=== PATIENT | male | born 1940 | race Caucasian/White ===

== ENCOUNTER 2020-02-16 09:32 | Inpatient (IN) | payer MEDICARE, OTHER ==
[~2020-02-16] VITALS: Ht 177.8 cm; Wt 67.2 kg
--- NOTE | 2020-02-16 09:46 | PHYS DOC ---
Past History Past Medical History: DVT, Other (non-hodgekin's lymphoma stage III on hospice) Adult General Chief Complaint Chief Complaint: ALTERED MENTAL STATUS HPI HPI Patient is a 79-year-old male who presents for falls. Patient lives at home with daughter and is currently on home hospice for stage III non-Hodgkin lymphoma for which he failed chemo and radiation. Per daughter, patient has had deterioration in mentation in the past 48 hours with several unwitnessed falls. In the past 24 hours, patient has had new onset visual hallucinations. Hospice was contacted and patient was administered lorazepam, morphine, and several doses of haloperidol without significant relief in patient's mentation. Patient had x2 unwitnessed falls this morning in the bathroom prompting daughter to call EMS to bring him to our facility for evaluation. Daughter admits patient is full code at this time. On arrival, patient has no complaints at this time, no fever, no headache, no chest pain, shortness of breath, nausea or vomit diarrhea, changes in bladder or bowel function. He is currently on Eliquis for prior DVT Review of Systems Review of Systems Fourteen body systems of review of systems have been reviewed. See HPI for pertinent positives and negative responses, other santiago all other systems are negative, non-pertinent or non-contributory Allergies Allergies Allergies Coded Allergies Type Severity Reaction Last Updated Verified No Known Drug Allergies 02/16/20 No Physical Exam Physical Exam Constitutional: Pt is oriented to person, place, and time. Pt appears thin and malnourished HENT: Head: Normocephalic and atraumatic. Mouth/Throat: Oropharynx is clear and moist. No hematomas or lacerations or abrasions to face or scalp OP clear, no blood, no malocclusion, dentition intact Nares clear, no nasal septal hematoma TMs clear, no hemotympanum Midface stable Eyes: Conjunctivae and EOM are normal. Pupils are equal, round, and reactive to light. Neck: C-spine midline nontender, no step-offs Cardiovascular: Normal rate, regular rhythm and normal heart sounds. Pulmonary/Chest: Effort normal and breath sounds normal. No respiratory distress. No wheezes. CTA bilaterally Abdominal: Soft. Bowel sounds are normal. No guarding or rebound. Pt exhibits no distension. There is no tenderness. Musculoskeletal: No bony tenderness to extremities, no deformities, full ROM extremities Chest wall stable Pelvis stable and non-tender No vertebral TTP and spine without stepoffs Neurological: Pt is alert and oriented to person, place, and time. Moving all extremities willfully, able to wiggle all fingers and toes Alert and oriented x 3 Sensation grossly intact Skin: Skin is warm and dry. No abrasions, no lacerations Psychiatric: Behavior is appropriate for situation Nursing note and vitals reviewed. Current Patient Data Vital Signs Vital Signs Date Time Temp Pulse Resp B/P (MAP) Pulse Ox O2 Delivery O2 Flow Rate FiO2 02/16/20 10:41 98.2 85 16 117/62 (80) 95 Lab Results Laboratory Tests Test 02/16/20 09:36 02/16/20 11:15 White Blood Count 3.7 x10^3/uL (4.0-11.0) Red Blood Count 4.09 x10^6/uL (4.30-5.70) Hemoglobin 12.8 g/dL (13.0-17.5) Hematocrit 38.8 % (39.0-53.0) Mean Corpuscular Volume 95 fL (79-100) Mean Corpuscular Hemoglobin 31 pg (25-35) Mean Corpuscular Hemoglobin Concent 33 g/dL (31-37) Red Cell Distribution Width 15.2 % (11.5-14.5) Platelet Count 162 x10^3/uL (140-400) Neutrophils (%) (Auto) 73 % (31-73) Lymphocytes (%) (Auto) 11 % (24-48) Monocytes (%) (Auto) 12 % (0-9) Eosinophils (%) (Auto) 4 % (0-3) Basophils (%) (Auto) 1 % (0-3) Neutrophils # (Auto) 2.7 x10^3uL (1.8-7.7) Lymphocytes # (Auto) 0.4 x10^3/uL (1.0-4.8) Monocytes # (Auto) 0.4 x10^3/uL (0.0-1.1) Eosinophils # (Auto) 0.1 x10^3/uL (0.0-0.7) Basophils # (Auto) 0.0 x10^3/uL (0.0-0.2) Sodium Level 141 mmol/L (136-145) Potassium Level 3.5 mmol/L (3.5-5.1) Chloride Level 105 mmol/L (98-107) Carbon Dioxide Level 28 mmol/L (21-32) Anion Gap 8 (6-14) Blood Urea Nitrogen 10 mg/dL (8-26) Creatinine 1.0 mg/dL (0.7-1.3) Estimated GFR (Cockcroft-Gault) 72.1 BUN/Creatinine Ratio 10 (6-20) Glucose Level 83 mg/dL (70-99) Calcium Level 8.7 mg/dL (8.5-10.1) Total Bilirubin 0.5 mg/dL (0.2-1.0) Aspartate Amino Transf (AST/SGOT) 15 U/L (15-37) Alanine Aminotransferase (ALT/SGPT) 11 U/L (16-63) Alkaline Phosphatase 49 U/L (46-116) Troponin I Quantitative 0.030 ng/mL (0-0.055) Total Protein 5.7 g/dL (6.4-8.2) Albumin 3.0 g/dL (3.4-5.0) Albumin/Globulin Ratio 1.1 (1.0-1.7) Urine Collection Type Unknown Urine Color Yellow Urine Clarity Clear Urine pH 5.5 Urine Specific [place] 1.015 Urine Protein Neg (NEG-TRACE) Urine Glucose (UA) Neg mg/dL (NEG) Urine Ketones (Stick) Neg mg/dL (NEG) Urine Blood Neg (NEG) Urine Nitrite Neg (NEG) Urine Bilirubin Neg (NEG) Urine Urobilinogen Dipstick 0.2 mg/dL (0.2 mg/dL) Urine Leukocyte Esterase Neg (NEG) Urine RBC 0 /HPF (0-2) Urine WBC 0 /HPF (0-4) Urine Bacteria 0 /HPF (0-FEW) EKG EKG EKG ordered and interpreted by myself at 1023 hrs. as sinus rhythm at 82 bpm, unremarkable intervals, left axis deviation, several premature ventricular complexes on ECG, right bundle branch block, no STEMI Radiology/Procedures Radiology/Procedures PROCEDURE: CHEST AP ONLY Examination: CHEST AP ONLY History: fall, fatigue Comparison: None. Findings: AP portable upright frontal view of the chest was obtained. Limited pulmonary inflation. The cardiomediastinal silhouette is normal. Left lateral basal nodular opacities are present.Elevation left hemidiaphragm noted. There is no pneumothorax. No pleural effusion is appreciated. No acute bone abnormality. Left upper abdominal surgical clips are present. IMPRESSION: No definite infiltrate. Nodular opacities at the left lateral lung base are present. Correlate with previous exams if available to assess stability. This may in part represent atelectasis or scarring. Follow-up two-view chest x-ray in the interval to assess for resolution. Electronically signed by: Bin Olivera MD (02/16/2020 10:21 AM) [id number] PROCEDURE: CT HEAD AND CERVICAL SPINE WO CT HEAD AND CERVICAL SPINE WO dated 02/16/2020 9:45 AM. Comparison: None. Clinical Indication: Reason: fall to head on eliquis / Spl. Instructions: / History: , HEAD AND NECK PAIN Technical factors: Contiguous 5 mm axial images of the head were obtained from the skullbase to the vertex. No contrast was administered. In addition, 3 mm axial images of the cervical spine were acquired with thin cut coronal and sagittal reconstructions. Findings head: Ventricles and sulci are mildly prominent for age. No midline shift or mass effect. Mild patchy low density in the deep/subcortical periventricular white matter. No hemorrhage or extra-axial collection. Posterior fossa and brainstem unremarkable. Mild mucosal thickening of the ethmoid air cells. The visualized paranasal sinuses and mastoid air cells are otherwise clear. No apparent calvarial abnormality. IMPRESSION HEAD: 1. No evidence of acute intracranial hemorrhage or mass. 2. Mild chronic small vessel ischemic changes and atrophy. Findings cervical spine: Images were acquired from the skull base to T3. There is straightening of the normal cervical lordosis, otherwise sagittal alignment is anatomic. Vertebral body heights are maintained. No prevertebral soft tissue swelling. Posterior elements are intact. No fractures are identified. Mild endplate hypertrophic changes throughout. There is multilevel uncovertebral spurring and disc space narrowing with multilevel facet arthropathy. Resultant moderate to severe bilateral foraminal stenosis at C5-C6 and C6-C7. There is also moderate to severe left foraminal narrowing at C3-C4. No significant central canal compromise. Visually soft tissue structures are unremarkable. Limited images of lung apices are clear. Small noncalcified pulmonary nodule in the left upper lobe on image 93 measures 3 mm, nonspecific. IMPRESSION CERVICAL SPINE: 1. No evidence of fracture or malalignment. 2. Moderate multilevel cervical spondylosis. Electronically signed by: Srinivas Balderrama MD (02/16/2020 10:16 AM) [facility] [place] Heart Score HEART Score for Chest Pain: HEART Score for Chest Pain Response (Comments) Value History Slighlty/Non-Suspicious 0 ECG Normal 0 Age > 65 2 Risk Factors >3 Risk Factors or Hx CAD 2 Troponin < Normal Limit 0 Total 4 Risk Factors: Risk Factors: DM, Current or recent (<one month) smoker, HTN, HLP, family history of CAD, obesity. Risk Scores: Risk Factors: DM, Current or recent (<one month) smoker, HTN, HLP, family history of CAD, obesity. Course & Med Decision Making Course & Med Decision Making Pertinent Labs and Imaging studies reviewed. (See chart for details) Well-appearing nontoxic ambulatory patient with ongoing visual hallucinations Case discussed at length with daughter and hospice nurse, they gave primary history regarding last 24 hours. It appears patient was owning yesterday evening and was responsive to Haldol given but daughter cannot provide level of care that patient has requiring at this time Pt continuing to have visual hallucinations in ER but is otherwise pleasant, alert and oriented x3. He is wandering down the halls but is very redirectable. I feel he would benefit from admission for continued observation and medication management to titrate up on Haldol vs other per hospitalist I called Dr. Duong, hospitalist at [facility] regarding patient case and he agreed to admission under his care. Daughter was contacted regarding this decision and was amenable. All questions and concerns addressed prior to transport for continued medical management and observation Dragon Disclaimer Dragon Disclaimer This electronic medical record was generated, in whole or in part, using a voice recognition dictation system. Departure Departure: Impression: Primary Impression: Visual hallucinations Additional Impressions: Non-Hodgkin lymphoma History of fall Anticoagulated Hospice care patient Full code status Disposition: ADMITTED INPT THIS HOSP ([facility]) Admitting Physician: Ayla Duong Condition: STABLE Problem Qualifiers JASON BOWLING DO Feb 16, 2020 09:45
[2020-02-16 10:15] LABS: BASO % 1 % (0-3); EOS # 0.1 x10^3/uL (0.0-0.7); EOS % 4 % (0-3); HEMATOCRIT 38.8 % (39.0-53.0); HEMOGLOBIN 12.8 g/dL (13.0-17.5); LYMPH # 0.4 x10^3/uL (1.0-4.8); LYMPH % 11 % (24-48); MEAN CORPUSCULAR HEMOGLOBIN 31 pg (25-35); MEAN CORPUSCULAR HGB CONC 33 g/dL (31-37); MEAN CORPUSCULAR VOLUME 95 fL (79-100); MONO # 0.4 x10^3/uL (0.0-1.1); MONO % 12 % (0-9); NEUT # 2.7 x10^3uL (1.8-7.7); NEUT % 73 % (31-73); PLATELET COUNT 162 x10^3/uL (140-400); RED BLOOD COUNT 4.09 x10^6/uL (4.30-5.70); RED CELL DISTRIBUTION WIDTH 15.2 % (11.5-14.5); WHITE BLOOD COUNT 3.7 x10^3/uL (4.0-11.0)
[2020-02-16 10:18] LABS: CALCIUM 8.7 mg/dL (8.5-10.1); GFR 72.1; POTASSIUM 3.5 mmol/L (3.5-5.1)
--- NOTE | 2020-02-16 10:19 | RAD ---
CT HEAD AND CERVICAL SPINE WO dated 02/16/2020 9:45 AM. Comparison: None. Clinical Indication: Reason: fall to head on eliquis / Spl. Instructions: / History: , HEAD AND NECK PAIN Technical factors: Contiguous 5 mm axial images of the head were obtained from the skullbase to the vertex. No contrast was administered. In addition, 3 mm axial images of the cervical spine were acquired with thin cut coronal and sagittal reconstructions. Findings head: Ventricles and sulci are mildly prominent for age. No midline shift or mass effect. Mild patchy low density in the deep/subcortical periventricular white matter. No hemorrhage or extra-axial collection. Posterior fossa and brainstem unremarkable. Mild mucosal thickening of the ethmoid air cells. The visualized paranasal sinuses and mastoid air cells are otherwise clear. No apparent calvarial abnormality. IMPRESSION HEAD: 1. No evidence of acute intracranial hemorrhage or mass. 2. Mild chronic small vessel ischemic changes and atrophy. Findings cervical spine: Images were acquired from the skull base to T3. There is straightening of the normal cervical lordosis, otherwise sagittal alignment is anatomic. Vertebral body heights are maintained. No prevertebral soft tissue swelling. Posterior elements are intact. No fractures are identified. Mild endplate hypertrophic changes throughout. There is multilevel uncovertebral spurring and disc space narrowing with multilevel facet arthropathy. Resultant moderate to severe bilateral foraminal stenosis at C5-C6 and C6-C7. There is also moderate to severe left foraminal narrowing at C3-C4. No significant central canal compromise. Visually soft tissue structures are unremarkable. Limited images of lung apices are clear. Small noncalcified pulmonary nodule in the left upper lobe on image 93 measures 3 mm, nonspecific. IMPRESSION CERVICAL SPINE: 1. No evidence of fracture or malalignment. 2. Moderate multilevel cervical spondylosis. Electronically signed by: Srinivas Balderrama MD (02/16/2020 10:16 AM) [facility]
--- NOTE | 2020-02-16 10:23 | RAD ---
Examination: CHEST AP ONLY History: fall, fatigue Comparison: None. Findings: AP portable upright frontal view of the chest was obtained. Limited pulmonary inflation. The cardiomediastinal silhouette is normal. Left lateral basal nodular opacities are present.Elevation left hemidiaphragm noted. There is no pneumothorax. No pleural effusion is appreciated. No acute bone abnormality. Left upper abdominal surgical clips are present. IMPRESSION: No definite infiltrate. Nodular opacities at the left lateral lung base are present. Correlate with previous exams if available to assess stability. This may in part represent atelectasis or scarring. Follow-up two-view chest x-ray in the interval to assess for resolution. Electronically signed by: Bin Olivera MD (02/16/2020 10:21 AM) [id number]
[2020-02-16 10:24] LABS: ALBUMIN/GLOBULIN RATIO 1.1 (1.0-1.7); TOTAL BILIRUBIN 0.5 mg/dL (0.2-1.0); TOTAL PROTEIN 5.7 g/dL (6.4-8.2)
[2020-02-16 11:57] LABS: BACTERIA,URINE 0 /HPF (0-FEW); BILIRUBIN,URINE NEG (NEG); CLARITY,URINE CLEAR; COLOR,URINE YELLOW; GLUCOSE,URINE NEG (NEG); NITRITE,URINE NEG (NEG); RBC,URINE 0 /HPF (0-2); UROBILINOGEN,URINE 0.2 mg/dL (0.2 mg/dL); WBC,URINE 0 /HPF (0-4)
[2020-02-16 13:45] VITALS: BP 123/68
[2020-02-16] MEDS ORDERED: APIX5TAB3 PO (14:57)
[2020-02-16] MEDS ORDERED: LISI-338 PO (14:58)
[2020-02-16] MEDS ORDERED: PROP10TA PO (14:59)
[2020-02-16] MEDS ORDERED: ONDA4TAB12 PO (15:09)
[2020-02-16] MEDS ORDERED: MORP15TA80 PO (15:09)
[2020-02-16] MEDS ORDERED: ESCITALOPRAM OX20 MG PO (15:09)
[2020-02-16] MEDS ORDERED: HALO5AMP2 IJ (15:51)
[2020-02-16] MEDS ORDERED: MORP10SO PO (15:51)
[2020-02-16 16:06] VITALS: BP 102/64
[2020-02-16 16:08] VITALS: BP 97/62
[2020-02-16 16:10] VITALS: BP 89/51
--- NOTE | 2020-02-16 16:22 | HP ---
ADMIT DATE: 02/16/2020 HISTORY OF PRESENT ILLNESS: The patient is a 79-year-old male patient who was brought to the Emergency Room with altered mental status. He apparently lives at home with his daughter and is currently on home hospice for stage 3 non-Hodgkin lymphoma that has failed chemo and radiation therapy. Per daughter, the patient has had deterioration in mentation in the past 48 hours with several unwitnessed falls. In the past 24 hours, the patient has had new onset of visual hallucination. Hospice was contacted, and the patient was administered lorazepam, morphine, and several doses of haloperidol without significant relief in the patient's mentation. He had 2 unwitnessed falls this morning in the bathroom, prompting the daughter to call EMS to bring him to [facility] Emergency Room. The daughter admits the patient is full code at this time. On arrival, the patient has no complaints at this time. He has no fever, headache, chest pain or shortness of breath. No nausea, no vomiting, no diarrhea. No changes in bladder or bowel habits. He is currently on Eliquis for prior DVT. He was extensively investigated in the Emergency Room and basically has had lab work as well as imaging studies that included CT scan of the head and cervical spine, which basically showed no evidence of acute intracranial hemorrhage or mass effect, mild chronic small vessel ischemic changes, or atrophy. CT scan of the cervical spine showed no evidence of fracture or malalignment, moderate multilevel cervical spondylosis. His chest x-ray was unremarkable with no definite infiltrate. No other opacities in the left lateral lung base are present, correlate with previous exams if available. The patient was admitted for further evaluation and treatment. PAST MEDICAL HISTORY: Significant for stage 3 non-Hodgkin lymphoma that was treated with radiation and chemotherapy and apparently has failed that. He has also history of DVT for which he is on Eliquis. PAST SURGICAL HISTORY: Significant for carpal tunnel release. He has paraesophageal hernia repair, bilateral inguinal hernia repair, and bilateral cataract extraction. He has had an EGD and colonoscopy. ALLERGIES: He has no known drug allergies. MEDICATIONS: He is currently on following medications: He is on apixaban 5 mg twice a day, propranolol 10 mg 3 times a day, and lisinopril 5 mg daily. He is on morphine sulfate for MS Contin 15 mg every 12 hours, escitalopram oxalate 20 mg daily, and ondansetron 4 mg 3 times a day. FAMILY HISTORY: His younger brother of a squamous cell carcinoma. His older brother of pancreatic cancer. His mother of lung cancer. He does not know his father. He when he was too young. SOCIAL HISTORY: He is ; however, his lives in [facility]. He is currently living with his daughter. He has never smoked, does not drink alcohol. 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 REVIEW OF SYSTEMS: As per history of present illness. PHYSICAL EXAMINATION: GENERAL: On arrival to the Emergency Room, the patient looked pale, cachectic, but no jaundice, cyanosis or thyromegaly. No jugular venous distention. No lower limb edema. VITAL SIGNS: His heart rate was 85, blood pressure was 117/62, temperature was 98.2, respiratory rate was 16, and oxygen saturation was 95%. HEAD, EYES, EARS, NOSE AND THROAT: Showed normocephalic, atraumatic. NECK: Supple. HEART: Showed normal first and second heart sounds. No gallop, rub or murmur. CHEST: Clear to auscultation. No crepitation or rhonchi. ABDOMEN: Distended, soft. No guarding or rigidity. No organomegaly. All hernial orifice intact. Bowel sounds normal. NEUROLOGIC: He is awake, alert. At times, seemed to be confused and generally, all his cranial nerves are intact. EXTREMITIES: He moves extremities without difficulty. He is apparently unsteady on his feet and has fallen multiple times. LABORATORY DATA: Showed a white cell count of 3700, hemoglobin 12.8, hematocrit 38, MCV 95, and platelet count of 162,000 with normal manual differential. His chemistry showed a serum sodium 141, potassium 3.5, chloride 105, bicarbonate 28, anion gap is 8, BUN is 10, creatinine 1, estimated GFR was 72 mL per minute. His glucose was 82, calcium was 8.7. Total bilirubin, AST, ALT, alkaline phosphatase were normal. His total protein was 5.7, albumin 3 and total troponin I was 0.03. His urinalysis was essentially unremarkable and it was yellow, clear with a pH of 5.5, specific gravity 1.015. The urine was negative for everything else. His chest x-ray showed no definite infiltrate, and the CT scan of the head and cervical spine were essentially unremarkable with no evidence of acute intracranial hemorrhage or mass, mild chronic small vessel ischemic changes and atrophy. No evidence of fracture or malalignment. Moderate multilevel cervical spondylosis. PLAN: Obviously to continue on all his medications. I will arrange for him to check his orthostatics and also consult Dr. Mejias to assist with management of his hallucinations. FRANCIE MILLER MD DR: NICCI/kendall JOB#: [id number] / [id number]
[2020-02-16] MEDS: ACETAMINOPHEN 325 MG TABLET PO PRN (16:25)
--- NOTE | 2020-02-16 17:14 | EKG ---
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
[2020-02-16] MEDS ORDERED: MORPHINE SULFATE 20 MG/ML CONC SOLUTION. SL PRN (17:15)
[2020-02-16] MEDS ORDERED: HALOPERIDOL LACT 5 MG/ML VIAL. IM SCH (18:00)
[2020-02-16] MEDS ORDERED: HALOPERIDOL 5 MG TABLET PO SCH (18:00)
--- NOTE | 2020-02-16 18:19 | NUR ---
Pt arrived to ICU room 2 via EMS from ED. Vs as charted. Pt belongings include clothing and wallet with celestin. Pt does not have cell phone or any other devices with him. Called Daughter, [place] to update on admission and obtain medication list. Pt initially pleasantly confused with hallucinations. Staff is able to reorient to place and time. As evening went on he became increasingly agitated, stating, 'I'm getting my clothes collected and am going home." When reminded he is in the hospital and the doctors are still evaluating him he stated with a raised voice, 'you people are forgetting who is the patient around here'. Pt is very impulsive and is out of bed frequently even with staff reminding him to call for help to get out of bed.
[2020-02-16 19:45] VITALS: BP 118/72
[2020-02-16] MEDS: APIXABAN 5 MG TABLET. PO SCH (20:28)
[2020-02-16] MEDS: ONDANSETRON ODT 4 MG TAB.RAPDIS PO SCH (20:29)
[2020-02-16] MEDS: MORPHINE ER 15 MG TABLET.ER PO SCH (20:29)
[2020-02-16] MEDS: traZODone 50 MG TABLET. PO SCH (20:29)
[2020-02-16] MEDS ORDERED: traZODone 50 MG TABLET. PO PRN (22:15)
[2020-02-17] VITALS (9 sets, daily range): BP systolic 75–149; BP diastolic 36–79
[2020-02-17 06:05] LABS: HEMOGLOBIN 13.4 g/dL (13.0-17.5); RED BLOOD COUNT 4.27 x10^6/uL (4.30-5.70); RED CELL DISTRIBUTION WIDTH 14.8 % (11.5-14.5)
--- NOTE | 2020-02-17 06:10 | NUR ---
Pt has been extremely restless and confused all night long. pt slept very minimal, in only 10-15 min increments a few times. Pt was confused and out of bed approx every 5-10 minutes all night long. pt very impulsive and got agitated at times when attempting to redirect. Pt has been having hallucinations and delusions all night, pt seeing things in the room and on the floor that are not there. Bed Alarm on at all times and this RN has sat at bedside most of the night to keep pt safe, as pt is very unsteady when up. Attempted PRN medications, see MAR but nothing was affective. Frequently redirected and reoriented pt, but pt quickly forgets. Continue to monitor pt closely.
[2020-02-17 06:22] LABS: ALBUMIN/GLOBULIN RATIO 1.1 (1.0-1.7); CALCIUM 8.5 mg/dL (8.5-10.1); GFR 72.1; POTASSIUM 3.1 mmol/L (3.5-5.1); TOTAL BILIRUBIN 0.6 mg/dL (0.2-1.0); TOTAL PROTEIN 5.7 g/dL (6.4-8.2)
[2020-02-17] MEDS ORDERED: OLANZapine IM 10 MG VIAL. IM ONE (07:00)
[2020-02-17] MEDS ORDERED: POTASSIUM CHLORIDE 20 MEQ TABLET.ER. PO ONE ×2 (07:45→15:15)
[2020-02-17] MEDS: APIXABAN 5 MG TABLET. PO SCH (08:30)
[2020-02-17] MEDS: CITALOPRAM 20 MG TABLET. PO SCH (08:30)
[2020-02-17] MEDS: MORPHINE ER 15 MG TABLET.ER PO SCH ×2 (08:30→21:40)
[2020-02-17] MEDS: ONDANSETRON ODT 4 MG TAB.RAPDIS PO SCH (09:00)
--- NOTE | 2020-02-17 09:36 | NUR ---
PATIENTS WALLET SENT TO SAFE. DID HAVE MONEY IN WALLET AND VALUABLES. VALUABLES SLIP WITH PATIENT CHART.
[2020-02-17] MEDS: ACETAMINOPHEN 325 MG TABLET PO PRN (11:21)
[2020-02-17] MEDS ORDERED: ZIPRASIDONE IM 20 MG VIAL. IM ONE (12:45)
[2020-02-17] MEDS ORDERED: ONDANSETRON ODT 4 MG TAB.RAPDIS PO PRN (14:15)
[2020-02-17] MEDS: POTASSIUM CL 20MEQ D5-0.2%NACL 1,000 ML IV SCH (15:47)
--- NOTE | 2020-02-17 17:52 | NUR ---
At beginning of shift, patient was extremely restless and hallucinating. constantly getting out of chair/bed to look under bed for people that are "trapped" and pick at things off the floor and put in pockets. Most of the time- easily redirectable but did get agitated from constant redirection. Around 1400, patient ended up falling asleep in bed and has been asleep all day. VSS and patient is arousable when checking on patient throughout shift. patient wallet with approximately 60 dollars in it has been put in the safe by the nursing fiberglass pipe covering supervisor.
[2020-02-17] MEDS ORDERED: ZIPRASIDONE IM 20 MG VIAL. IM PRN (18:15)
--- NOTE | 2020-02-17 20:36 | CONS ---
DATE OF CONSULTATION: 02/16/2020 PSYCHIATRIC PROGRESS NOTE This late entry date of service 02/16/2020 covers elements not covered in my initial note 02/16/2020. IDENTIFYING DATA: The patient is a 79-year-old male seen in ICU bed #2, [facility], for a psychiatric consult requested by Dr. Duong on account of the patient's hallucinations starting on 02/14/2020. The patient has been on hospice care for non-Hodgkin's lymphoma and he has been having active hallucinations. He presented to the Emergency Room with altered mental status. CHIEF COMPLAINT: "I am okay. Discussed the patient with TANNER Hernandez, reviewed the chart. I met with the patient individually. HISTORY OF PRESENT ILLNESS: The patient reportedly lives at home with his daughter and is currently on hospice for stage 3, non-Hodgkin's lymphoma that failed chemo and radiation therapy. Apparently, the patient had a deterioration in his mentation in the past 48 hours with several unwitnessed falls. In the past 24 hours, he had new onset of visual hallucinations. Hospice had administered morphine, lorazepam, several doses of Haldol without significant relief in the mentation. He had 2 unwitnessed falls in the morning in the bathroom, prompting the daughter to call EMS and bringing in to [facility] ER and then admitted to ICU. I have been asked to consult on account of his visual hallucinations, recalcitrant to Haldol. The patient remains a full code. He had extensive evaluation in the ER including CT head, which showed no evidence of acute changes, but there were small vessel ischemic disease noted, but this was mild. CT cervical spine showed no evidence of fracture or malalignment. PAST PSYCHIATRIC HISTORY: Noncontributory. PAST MEDICAL HISTORY: As noted above, additionally has a history of DVT for which he is on Eliquis. PAST SURGICAL HISTORY: Carpal tunnel release and a paraesophageal hernia repair, bilateral inguinal hernia repair, bilateral cataract extraction. He has had an EGD and colonoscopy. FAMILY HISTORY: Negative. CURRENT PSYCHOTROPICS: He has been on scheduled Haldol. FAMILY HISTORY: Squamous cell carcinoma in younger brother, pancreatic cancer in older brother. Mother of lung cancer. SOCIAL HISTORY: The patient is . He lives with his daughter. No history of alcohol abuse. 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 MENTAL STATUS EXAMINATION: The patient was seen individually ICU bed #2 in the evening of 02/16/2020. He knew the year was 2019, was unclear about that date, knew the president was president Trelizabeth and before him president Obama and before him President Reynolds, but when questioned on what city he was in, he was unclear and mentioned the name [place]. It took me several repetitions but then when I told him he was in [place], he accepted this. Speech is coherent, abstraction fair. Attention span is short. No active suicidal or homicidal ideation. He minimized his active visual hallucinations. LABORATORY DATA: Reviewed. IMPRESSION: Psychotic disorder, unspecified versus delirium due to general medical condition versus mild cognitive impairment. Rest as above. RECOMMENDATIONS: From a psychiatric standpoint, the patient has failed treatment on Haldol and we will change this to Zyprexa 2.5 mg q. 2 hours p.r.n. psychosis, agitation, max 7.5 in 24 hours. We will observe baseline, may consider transition to [facility] if symptoms persist despite above. Defer medical management to Dr. Duong. Dr. Duong, thank you for the opportunity to participate in your patient's care. We will follow with you. RUSTAM PACE MD DR: NANCY/kendall JOB#: [id number] / [id number]
[2020-02-17] MEDS: traZODone 50 MG TABLET. PO SCH (21:40)
--- NOTE | 2020-02-17 21:59 | PDOC ---
Exam Note: Minesh Note: Please also refer to the separate dictated note~for this date of service dictated separately.~Patient seen individually. Discussed the patient with Nursing staff reviewed the chart.~Reviewed interim history and current functioning. Reviewed vital signs,~Labs/ Radiology~and current medications noted below. Continue current treatment with the changes noted in the dictated addendum note Assessment: Vital Signs/I&O: Vital Signs Date Time Temp Pulse Resp B/P (MAP) Pulse Ox O2 Delivery O2 Flow Rate FiO2 02/17/20 21:40 16 99 Nasal Cannula 2.0 02/17/20 20:06 98 117/76 (90) 02/17/20 17:51 97.4 I & O 02/16/20 02/16/20 02/17/20 15:00 23:00 07:00 Intake Total 200 ml 500 ml Balance 200 ml 500 ml Labs: Laboratory Tests Test 02/17/20 05:34 White Blood Count 3.0 x10^3/uL (4.0-11.0) L Red Blood Count 4.27 x10^6/uL (4.30-5.70) L Hemoglobin 13.4 g/dL (13.0-17.5) Hematocrit 41.0 % (39.0-53.0) Mean Corpuscular Volume 96 fL (79-100) Mean Corpuscular Hemoglobin 31 pg (25-35) Mean Corpuscular Hemoglobin Concent 33 g/dL (31-37) Red Cell Distribution Width 14.8 % (11.5-14.5) H Platelet Count 148 x10^3/uL (140-400) Sodium Level 142 mmol/L (136-145) Potassium Level 3.1 mmol/L (3.5-5.1) L Chloride Level 106 mmol/L (98-107) Carbon Dioxide Level 27 mmol/L (21-32) Anion Gap 9 (6-14) Blood Urea Nitrogen 7 mg/dL (8-26) L Creatinine 1.0 mg/dL (0.7-1.3) Estimated GFR (Cockcroft-Gault) 72.1 BUN/Creatinine Ratio 7 (6-20) Glucose Level 82 mg/dL (70-99) Calcium Level 8.5 mg/dL (8.5-10.1) Total Bilirubin 0.6 mg/dL (0.2-1.0) Aspartate Amino Transferase (AST) 16 U/L (15-37) Alanine Aminotransferase (ALT) 13 U/L (16-63) L Alkaline Phosphatase 49 U/L (46-116) Lactate Dehydrogenase 170 U/L (85-227) Total Protein 5.7 g/dL (6.4-8.2) L Albumin 3.0 g/dL (3.4-5.0) L Albumin/Globulin Ratio 1.1 (1.0-1.7) Current Medications: Meds: Current Medications Medications (Trade) Dose Ordered Sig/Osmar Route PRN Reason Start Time Stop Time Status Last Admin Dose Admin Citalopram Hydrobromide (CeleXA) 40 mg DAILY PO 02/17/20 09:00 02/17/20 08:30 Olanzapine (ZyPREXA IM) 5 mg 1X ONCE IM 02/17/20 07:00 02/17/20 07:01 DC 02/17/20 07:18 Potassium Chloride (Klor-Con) 40 meq 1X ONCE PO 02/17/20 07:45 02/17/20 07:46 DC 02/17/20 08:30 Potassium Chloride/Dextrose/ Sod Cl 1,000 ml @ 100 mls/hr Q10H IV 02/17/20 15:00 02/17/20 15:47 Potassium Chloride (Klor-Con) 40 meq 1X ONCE PO 02/17/20 15:15 02/17/20 15:16 DC 02/17/20 15:48 I have reviewed the current psychotropics carefully including drug interactions. Risk benefit ratio favors no change other than as noted in my dictated progress note. Diagnosis: Problems: (1) Psychotic disorder (2) Delirium due to another medical condition (3) Mild cognitive impairment RUSTAM PACE MD Feb 17, 2020 21:59
--- NOTE | 2020-02-17 22:02 | PDOC ---
Exam Note: Minesh Note: This is a late entry for DOS 02/16/2020. Please also refer to the separate dictated note~for this date of service dictated separately.~Patient seen individually. Discussed the patient with Nursing staff reviewed the chart.~Reviewed interim history and current functioning. Reviewed vital signs,~Labs/ Radiology~and current medications noted below. Continue current treatment with the changes noted in the dictated addendum note Assessment: Vital Signs/I&O: Vital Signs Date Time Temp Pulse Resp B/P (MAP) Pulse Ox O2 Delivery O2 Flow Rate FiO2 02/17/20 21:40 16 99 Nasal Cannula 2.0 02/17/20 20:06 98 117/76 (90) 02/17/20 17:51 97.4 I & O 02/16/20 02/16/20 02/17/20 15:00 23:00 07:00 Intake Total 200 ml 500 ml Balance 200 ml 500 ml Labs: Laboratory Tests Test 02/17/20 05:34 White Blood Count 3.0 x10^3/uL (4.0-11.0) L Red Blood Count 4.27 x10^6/uL (4.30-5.70) L Hemoglobin 13.4 g/dL (13.0-17.5) Hematocrit 41.0 % (39.0-53.0) Mean Corpuscular Volume 96 fL (79-100) Mean Corpuscular Hemoglobin 31 pg (25-35) Mean Corpuscular Hemoglobin Concent 33 g/dL (31-37) Red Cell Distribution Width 14.8 % (11.5-14.5) H Platelet Count 148 x10^3/uL (140-400) Sodium Level 142 mmol/L (136-145) Potassium Level 3.1 mmol/L (3.5-5.1) L Chloride Level 106 mmol/L (98-107) Carbon Dioxide Level 27 mmol/L (21-32) Anion Gap 9 (6-14) Blood Urea Nitrogen 7 mg/dL (8-26) L Creatinine 1.0 mg/dL (0.7-1.3) Estimated GFR (Cockcroft-Gault) 72.1 BUN/Creatinine Ratio 7 (6-20) Glucose Level 82 mg/dL (70-99) Calcium Level 8.5 mg/dL (8.5-10.1) Total Bilirubin 0.6 mg/dL (0.2-1.0) Aspartate Amino Transferase (AST) 16 U/L (15-37) Alanine Aminotransferase (ALT) 13 U/L (16-63) L Alkaline Phosphatase 49 U/L (46-116) Lactate Dehydrogenase 170 U/L (85-227) Total Protein 5.7 g/dL (6.4-8.2) L Albumin 3.0 g/dL (3.4-5.0) L Albumin/Globulin Ratio 1.1 (1.0-1.7) Current Medications: Meds: Current Medications Medications (Trade) Dose Ordered Sig/Osmar Route PRN Reason Start Time Stop Time Status Last Admin Dose Admin Citalopram Hydrobromide (CeleXA) 40 mg DAILY PO 02/17/20 09:00 02/17/20 08:30 Olanzapine (ZyPREXA IM) 5 mg 1X ONCE IM 02/17/20 07:00 02/17/20 07:01 DC 02/17/20 07:18 Potassium Chloride (Klor-Con) 40 meq 1X ONCE PO 02/17/20 07:45 02/17/20 07:46 DC 02/17/20 08:30 Potassium Chloride/Dextrose/ Sod Cl 1,000 ml @ 100 mls/hr Q10H IV 02/17/20 15:00 02/17/20 15:47 Potassium Chloride (Klor-Con) 40 meq 1X ONCE PO 02/17/20 15:15 02/17/20 15:16 DC 02/17/20 15:48 I have reviewed the current psychotropics carefully including drug interactions. Risk benefit ratio favors no change other than as noted in my dictated progress note. Diagnosis: Problems: (1) Psychotic disorder (2) Mild cognitive impairment (3) Delirium due to another medical condition RUSTAM PACE MD Feb 17, 2020 22:02
[2020-02-18] VITALS (7 sets, daily range): BP systolic 88–112; BP diastolic 37–74
[2020-02-18] MEDS: POTASSIUM CL 20MEQ D5-0.2%NACL 1,000 ML IV SCH ×3 (01:23→23:36)
--- NOTE | 2020-02-18 06:02 | NUR ---
Pt slept on through the night. Awoke twice to attempt to urinate, without success. Pt bladder scanned this morning with urine volume >[address] Duong notified and new order for straight cath PRN. Straight cath performed by sterile technique, immediate return of 350 mL clear, straw urine. Pt tolerated well. Pt is A/Ox3 this morning, able to follow directions and recollect events leading up to his admission. Pt reports, "my daughter got a little worked up after I fell." No hallucinations noted.
[2020-02-18 06:52] LABS: HEMATOCRIT 40.9 % (39.0-53.0); HEMOGLOBIN 13.4 g/dL (13.0-17.5); RED BLOOD COUNT 4.26 x10^6/uL (4.30-5.70); RED CELL DISTRIBUTION WIDTH 15.3 % (11.5-14.5); WHITE BLOOD COUNT 4.1 x10^3/uL (4.0-11.0)
[2020-02-18 07:02] LABS: ALBUMIN/GLOBULIN RATIO 1.1 (1.0-1.7); CALCIUM 8.4 mg/dL (8.5-10.1); GFR 72.1; POTASSIUM 3.8 mmol/L (3.5-5.1); TOTAL BILIRUBIN 0.6 mg/dL (0.2-1.0); TOTAL PROTEIN 5.7 g/dL (6.4-8.2)
--- NOTE | 2020-02-18 07:08 | PN ---
DATE: 02/16/2020 SUBJECTIVE: The patient was admitted yesterday for recurrent falls, hallucination and insomnia. We did start him on trazodone and apparently was seen by ____ who also added olanzapine and despite all the treatment, he was extremely agitated, restless. His lab work yesterday was well within normal limits. The patient was awake, alert, lucid and oriented to time, place and person; however, apparently at nighttime he did not sleep and throughout the night despite treatment with trazodone 50 mg twice and also olanzapine. This morning the patient was given Roxanol and apparently that has helped him sleep. I had a lengthy discussion with his oncologist, Dr. Cross at the [facility] and she was concerned about FINANCE DIRECTOR involvement of the lymphoma; however, his CT scan was unremarkable. The only way to find out is to do obviously a lumbar puncture. Unfortunately, he was on apixaban and obviously that precluded this procedure at least for today and the plan was to hold her apixaban for 2 days and then consult the radiologist to do a lumbar puncture to rule out FINANCE DIRECTOR involvement with the lymphoma. Meanwhile, he has marked postural hypotension such that his blood pressure lying was 149/79, sitting was 108/56 and standing dropped down to 75/36 and therefore I have discontinued his lisinopril and his propranolol. We will also start him on IV fluid. His potassium is low also at 3.1 and we will replenish that also. PHYSICAL EXAMINATION: GENERAL: When I examined him this afternoon, he was resting slightly propped up in bed, sleeping comfortably, in no apparent respiratory distress. He was pale, not jaundiced, cyanosis or thyromegaly. No jugular venous distention. No limb edema. VITAL SIGNS: Her heart rate was 74, his blood pressure was 149/79 lying, respiratory rate was 16, and oxygen saturation was 94% on room air. HEAD, EYES, EARS, NOSE AND THROAT: Showed normocephalic, atraumatic. NECK: Supple. HEART: Showed normal first and second heart sounds. No gallop, rub or murmur. CHEST: Clear to auscultation. No crepitation or rhonchi. ABDOMEN: Distended, soft, nontender. NEUROLOGIC: He was sleepy, but arousable. All his cranial nerves are intact. He moves extremities without difficulty. He ambulates; however, he has very unsteady gait. His intake and output were incompletely recorded. LABORATORY DATA: Her lab work this morning showed a serum sodium 142, potassium 3.1, chloride 106, bicarbonate 27, anion gap of 9, BUN 7, creatinine 1, estimated GFR was 72 mL per minute. His glucose was 82, calcium was 8.5. Total bilirubin, AST, ALT, alkaline phosphatase were normal. His lactate dehydrogenase was only 117, total protein 5.7, albumin was 3. His white cell count was 3000, hemoglobin 13.4, hematocrit 41, MCV 96, and platelet count of 148,000. ASSESSMENT: 1. Stage 4 non-Hodgkin lymphoma, treated with chemotherapy and radiation treatment. The patient is currently on hospice. 2. Recurrent falls, likely due to marked postural hypertension. 3. Hallucination. 4. He has leukopenia. His urinalysis; however, was essentially unremarkable. Has a history of deep venous thrombosis and pulmonary embolism for which he is on apixaban. PLAN: My plan is to replenish the potassium and start him also on D5 quarter saline with 20 mEq of potassium chloride. I have stopped his apixaban and in discussion with Dr. Cross, his oncologist who will arrange for him to have a lumbar puncture to be done on Monday after we discontinued the apixaban. FRANCIE MILLER MD DR: NICCI/kendall JOB#: [id number] / [id number]
--- NOTE | 2020-02-18 07:20 | PDOC ---
Exam Note: Minesh Note: This note is a late entry for 02/17/2020 covers elements not covered in my initial note. Subjective: The patient was seen face to face in the evening of 02/17/2020 with nursing staff. Discussed with nursing staff, reviewed the chart. Per nursing report, the patient continues to have intermittent hallucinations, grabbing at things. He did not sleep last night and received 5 mg IM Zyprexa in the morning per Dr. Duong because he was actively hallucinating and restless, agitated. He slept after breakfast most of the day. Review of Systems: Ambulation impaired. No CV, , pulmonary, eye system symptoms on review. Mental Status Exam: Oriented to himself and situation. Speech not very verbal. Abstraction is fair. Computation is impaired. He does have short-term memory deficits. Laboratory Data: Reviewed. Impression: Major depressive disorder with psychotic features. Psychotic disorder unspecified. Dementia with delusions. Plan: Increase Zyprexa p.r.n. 24 hour dosage to 12.5 mg. Continue rest unchanged. Consider [facility] to [facility] depending on what information we get from the patients daughter, his DPOA. Assessment: Vital Signs/I&O: Vital Signs Date Time Temp Pulse Resp B/P (MAP) Pulse Ox O2 Delivery O2 Flow Rate FiO2 02/18/20 05:33 98.5 87 18 108/74 (85) 98 Nasal Cannula 2.0 I & O 02/17/20 02/17/20 02/18/20 15:00 23:00 07:00 Intake Total 50 ml 0 ml 1100 ml Output Total 350 ml Balance 50 ml 0 ml 750 ml Labs: Laboratory Tests Test 02/18/20 06:15 White Blood Count 4.1 x10^3/uL (4.0-11.0) Red Blood Count 4.26 x10^6/uL (4.30-5.70) L Hemoglobin 13.4 g/dL (13.0-17.5) Hematocrit 40.9 % (39.0-53.0) Mean Corpuscular Volume 96 fL (79-100) Mean Corpuscular Hemoglobin 31 pg (25-35) Mean Corpuscular Hemoglobin Concent 33 g/dL (31-37) Red Cell Distribution Width 15.3 % (11.5-14.5) H Platelet Count 152 x10^3/uL (140-400) Sodium Level 140 mmol/L (136-145) Potassium Level 3.8 mmol/L (3.5-5.1) Chloride Level 105 mmol/L (98-107) Carbon Dioxide Level 27 mmol/L (21-32) Anion Gap 8 (6-14) Blood Urea Nitrogen 8 mg/dL (8-26) Creatinine 1.0 mg/dL (0.7-1.3) Estimated GFR (Cockcroft-Gault) 72.1 BUN/Creatinine Ratio 8 (6-20) Glucose Level 106 mg/dL (70-99) H Calcium Level 8.4 mg/dL (8.5-10.1) L Total Bilirubin 0.6 mg/dL (0.2-1.0) Aspartate Amino Transferase (AST) 18 U/L (15-37) Alanine Aminotransferase (ALT) 12 U/L (16-63) L Alkaline Phosphatase 52 U/L (46-116) Total Protein 5.7 g/dL (6.4-8.2) L Albumin 3.0 g/dL (3.4-5.0) L Albumin/Globulin Ratio 1.1 (1.0-1.7) Current Medications: Meds: Current Medications Medications (Trade) Dose Ordered Sig/Osmar Route PRN Reason Start Time Stop Time Status Last Admin Dose Admin Citalopram Hydrobromide (CeleXA) 40 mg DAILY PO 02/17/20 09:00 02/17/20 08:30 Potassium Chloride (Klor-Con) 40 meq 1X ONCE PO 02/17/20 07:45 02/17/20 07:46 DC 02/17/20 08:30 Potassium Chloride/Dextrose/ Sod Cl 1,000 ml @ 100 mls/hr Q10H IV 02/17/20 15:00 02/18/20 01:23 Potassium Chloride (Klor-Con) 40 meq 1X ONCE PO 02/17/20 15:15 02/17/20 15:16 DC 02/17/20 15:48 I have reviewed the current psychotropics carefully including drug interactions. Risk benefit ratio favors no change other than as noted in my dictated progress note. Diagnosis: Problems: (1) Psychotic disorder (2) Mild cognitive impairment (3) Delirium due to another medical condition RUSTAM PACE MD Feb 18, 2020 07:20
[2020-02-18] MEDS: CITALOPRAM 20 MG TABLET. PO SCH (09:14)
[2020-02-18] MEDS: MORPHINE ER 15 MG TABLET.ER PO SCH ×2 (09:15→20:07)
--- NOTE | 2020-02-18 19:34 | NUR ---
Pt no longer on 1:1 obs status. Pt doing better this evening, sitting up in bed watching TV. Pleasant and appropriate when approached for assessment. Amb with SBA to void in toilet. Pt noted to have some hesitancy but was eventually able to void on his own. Pt reports increase in tremors BUE. Per report, pt was seen by Dr. Tomlinson this afternoon and new order for primidone 25mg PO QHS to begin tonight. Pt aware of lumbar puncture scheduled for tomorrow AM, agreeable. Pt wished to speak with daughter. Valencia contacted via phone and transferred into pt room. Pt's daughter called back after conversing with pt and this nurse updated her on POC, V/U.
[2020-02-18] MEDS: traZODone 50 MG TABLET. PO SCH (20:08)
[2020-02-18] MEDS ORDERED: PRIMIDONE 50 MG TABLET PO SCH (21:00)
--- NOTE | 2020-02-18 22:03 | PDOC ---
Exam Note: Minesh Note: Please also refer to the separate dictated note~for this date of service dictated separately.~Patient seen individually. Discussed the patient with Nursing staff reviewed the chart.~Reviewed interim history and current functioning. Reviewed vital signs,~Labs/ Radiology~and current medications noted below. Continue current treatment with the changes noted in the dictated addendum note Assessment: Vital Signs/I&O: Vital Signs Date Time Temp Pulse Resp B/P (MAP) Pulse Ox O2 Delivery O2 Flow Rate FiO2 02/18/20 20:07 18 97 Nasal Cannula 2.0 02/18/20 19:19 98.8 109 94/58 (70) I & O 02/17/20 02/17/20 02/18/20 15:00 23:00 07:00 Intake Total 50 ml 0 ml 1100 ml Output Total 350 ml Balance 50 ml 0 ml 750 ml Labs: Laboratory Tests Test 02/18/20 06:15 White Blood Count 4.1 x10^3/uL (4.0-11.0) Red Blood Count 4.26 x10^6/uL (4.30-5.70) L Hemoglobin 13.4 g/dL (13.0-17.5) Hematocrit 40.9 % (39.0-53.0) Mean Corpuscular Volume 96 fL (79-100) Mean Corpuscular Hemoglobin 31 pg (25-35) Mean Corpuscular Hemoglobin Concent 33 g/dL (31-37) Red Cell Distribution Width 15.3 % (11.5-14.5) H Platelet Count 152 x10^3/uL (140-400) Sodium Level 140 mmol/L (136-145) Potassium Level 3.8 mmol/L (3.5-5.1) Chloride Level 105 mmol/L (98-107) Carbon Dioxide Level 27 mmol/L (21-32) Anion Gap 8 (6-14) Blood Urea Nitrogen 8 mg/dL (8-26) Creatinine 1.0 mg/dL (0.7-1.3) Estimated GFR (Cockcroft-Gault) 72.1 BUN/Creatinine Ratio 8 (6-20) Glucose Level 106 mg/dL (70-99) H Calcium Level 8.4 mg/dL (8.5-10.1) L Total Bilirubin 0.6 mg/dL (0.2-1.0) Aspartate Amino Transferase (AST) 18 U/L (15-37) Alanine Aminotransferase (ALT) 12 U/L (16-63) L Alkaline Phosphatase 52 U/L (46-116) Total Protein 5.7 g/dL (6.4-8.2) L Albumin 3.0 g/dL (3.4-5.0) L Albumin/Globulin Ratio 1.1 (1.0-1.7) Current Medications: Meds: Current Medications Medications (Trade) Dose Ordered Sig/Osmar Route PRN Reason Start Time Stop Time Status Last Admin Dose Admin Primidone (Mysoline) 25 mg HS PO 02/18/20 21:00 02/18/20 20:08 I have reviewed the current psychotropics carefully including drug interactions. Risk benefit ratio favors no change other than as noted in my dictated progress note. Diagnosis: Problems: (1) Psychotic disorder (2) Mild cognitive impairment (3) Delirium due to another medical condition RUSTAM PACE MD Feb 18, 2020 22:03
[2020-02-19 05:08] VITALS: BP 125/75
[2020-02-19 06:28] LABS: HEMATOCRIT 37.3 % (39.0-53.0); HEMOGLOBIN 12.4 g/dL (13.0-17.5); RED BLOOD COUNT 3.92 x10^6/uL (4.30-5.70); RED CELL DISTRIBUTION WIDTH 15.4 % (11.5-14.5); WHITE BLOOD COUNT 4.2 x10^3/uL (4.0-11.0)
[2020-02-19] MEDS: POTASSIUM CL 20MEQ D5-0.2%NACL 1,000 ML IV SCH ×2 (07:00→17:12)
--- NOTE | 2020-02-19 08:29 | PN ---
DATE: 02/18/2020 SUBJECTIVE: The patient is resting, slightly propped up in bed, in no apparent respiratory distress. He is awake, alert, responding appropriately. On questioning him, he denied any complaint. The nursing staff did not voice any concerns that he has good night sleep. He has eaten his breakfast late, so has not eaten his lunch yet. We did check his orthostatics and his blood pressure has been stable without any postural drop. PHYSICAL EXAMINATION: GENERAL: When I examined him, he looked pale. No jaundice, cyanosis or thyromegaly. No jugular venous distention. No lower limb edema. VITAL SIGNS: His blood pressure in the supine position was 105/37 with a heart rate of 97, sitting was 110/73 with a heart rate of 105 and standing was 112/62 with a heart rate of 112. His temperature was 98, respiratory rate 20, and oxygen saturation was 96% on 2 liters of oxygen. HEAD, EYES, EARS, NOSE AND THROAT: Showed normocephalic, atraumatic. NECK: Supple. HEART: Normal first and second sounds. No gallop or murmur. CHEST: Clear to auscultation. No crepitation or rhonchi. ABDOMEN: Scaphoid, soft, nontender. NEUROLOGIC: He is definitely awake, alert, lucid. All his cranial nerves are intact. He moves extremities without difficulty. His intake was 700, no output was recorded. LABORATORY DATA: His lab work this morning showed a white cell count of 4100, hemoglobin 13.4, hematocrit 40.9, MCV 96 and a platelet count of 152,000. His chemistry showed serum sodium of 140, potassium 3.8, chloride 105, bicarbonate 27, anion gap of 8, BUN 8, creatinine 1, estimated GFR was 72 mL per minute. His glucose was 106, calcium was 8.4. Total bilirubin, AST, ALT, alkaline phosphatase were normal. Total protein 5.7, albumin 3. Urinalysis essentially unremarkable. ASSESSMENT: 1. Stage 4 non-Hodgkin lymphoma, treated with chemotherapy and radiation treatment. The patient is currently on hospice. 2. Recurrent falls, likely due to marked postural hypotension induced by lisinopril and Inderal. 3. Hallucination. 4. He has leukopenia; however, his urinalysis was essentially unremarkable. 5. He has history of deep vein thrombosis and pulmonary embolism for which he is on apixaban. PLAN: 1. Plan is to obviously we have replenished his potassium and rehydrated him with D5 plus 20 mEq of potassium chloride. 2. I did discontinue his apixaban and he is scheduled for a lumbar puncture tomorrow at 8:15. I did order CBC and PT/INR as requested by the radiologist. I also requested evaluation by Dr. Tomlinson as he has familial essential tremors and I believe the Inderal is causing his hypotension and recurrent falls together with lisinopril. FRANCIE MILLER MD DR: NICCI/kendall JOB#: [id number] / [id number]
[2020-02-19 09:30] LABS: CSF PROTEIN 51.1 mg/dL (15.0-45.0)
[2020-02-19] MEDS: CITALOPRAM 20 MG TABLET. PO SCH (09:34)
[2020-02-19] MEDS: MORPHINE ER 15 MG TABLET.ER PO SCH (09:34)
[2020-02-19 09:57] LABS: CSF CLARITY CLEAR; CSF COLOR COLORLESS
[2020-02-19 09:58] LABS: CSF RBC COUNT 1; CSF WBC COUNT 0
--- NOTE | 2020-02-19 10:13 | RAD ---
EXAM: Fluoroscopic guided lumbar puncture. HISTORY: Altered mental status. TECHNIQUE: The risks of the procedure were discussed with the patient and written and verbal consent was obtained. A timeout was performed. The patient was placed in a prone position on the fluoroscopic table and a suitable entry site into the central canal through the L4-L5 interlaminar space was identified with fluoroscopic guidance. This site was prepped and draped in sterile fashion. 1% lidocaine solution without epinephrine was infiltrated into the skin and deep soft tissues along the expected needle track. A 20-gauge spinal needle was advanced into the thecal sac with intermittent fluoroscopic guidance. A total of 12 mL CSF was collected and sent to the laboratory for requested analysis. The needle was removed and a sterile bandage was placed. The patient tolerated the procedure without complication. The total fluoroscopy time was 1.4 minutes. IMPRESSION: Successful fluoroscopically guided lumbar puncture. Electronically signed by: Ct Hayward MD (02/19/2020 10:10 AM) [id number]
[2020-02-19 11:37] VITALS: BP 93/70
--- NOTE | 2020-02-19 14:33 | PN ---
DATE: 02/19/2020 ATTENDING PHYSICIAN: Dr. Duong, Dr. Jensen. SUBJECTIVE: The patient is alert. He had a spinal tap without any incident. He is alert. He does not appear acutely ill. We had a fairly normal conversation. He was very cogent and told me that he has a known diagnosis of stage III non-Hodgkin's lymphoma, diagnosed in June of this year. The first 4 treatments were actually done in [facility]. He and his had a place there because they can afford it, she is still there right now trying to recover from her own surgery. He has had first round of chemotherapy. Confusion was maybe related to medication. Spinal tap was to rule out SPACE TECHNOLOGIST involvement. If indeed that is the case, the recommendation from his oncologist, Dr. Cross, is placement of an Ommaya reservoir and intrathecal methotrexate. He was a bit stunned, he will think about further treatment. I have not talked with his daughter yet. OBJECTIVE FINDINGS: VITAL SIGNS: His blood pressure today is 125/75, pulse is 92 and regular, he is afebrile, oxygen saturation 95% on room air. HEENT: Head is without trauma. Pupils are reactive. Sclerae are nonicteric. Oropharynx is clear. NECK: Supple, no bruits. LUNGS: Clear. CARDIOVASCULAR: Showed regular heart tones. ABDOMEN: Soft. EXTREMITIES: Without edema. SKIN: Warm and dry. NEUROLOGIC: Focally intact. No deficits. Speech is fluent. He is alert. ASSESSMENT: 1. Stage III or stage IV non-Hodgkin's lymphoma, status post chemotherapy and radiation treatment. 2. Recurrent falls. 3. Hallucinations. 4. Recent confusion with hallucination. 5. Rule out central nervous system involvement. 6. History of deep venous thrombosis and pulmonary embolism, currently on Eliquis. PLAN: 1. Rehydration orders with IV fluids. 2. Spinal tap done earlier today with orders for cytology and flow cytometry. 3. Follow up CBC. 4. Restart apixaban. 5. I have spoken with Dr. Cross at the [place]. It is up to the patient if indeed he does have SPACE TECHNOLOGIST involvement, their recommendation is intrathecal methotrexate. CRISELDA JENSEN MD DR: LYNN/kendall JOB#: [id number] / [id number]
--- NOTE | 2020-02-19 15:07 | NUR ---
NURSING NOTE: STRAIGHT CATH PT COMPLAINED OF PRESSURE ON HIS BLADDER. BLADDER WAS DISTENDED. BLADDER SCAN PREFORMED SHOWING GREATER THAN 900ML OF URINE. STRAIGHT CATH PREFORMED WITH GREATER THAN 1000ML OF URINE DRAINED. PT TOLERATED WELL. NO COMPLICATIONS. WILL CONTINUE TO MONITOR. TANNER DEL ROSARIO
[2020-02-19 15:24] VITALS: BP 95/47
[2020-02-19 15:25] VITALS: BP 93/61
[2020-02-19 19:00] VITALS: BP 104/70
[2020-02-19] MEDS: HYDROmorphone 2 MG TABLET PO SCH (20:25)
[2020-02-19] MEDS: traZODone 50 MG TABLET. PO SCH (20:25)
[2020-02-19] MEDS ORDERED: PRIMIDONE 50 MG TABLET PO SCH (21:00)
[2020-02-19 23:00] VITALS: BP 96/52
--- NOTE | 2020-02-20 00:25 | CONS ---
DATE OF CONSULTATION: 02/18/2020 NEUROLOGY CONSULTATION REASON FOR CONSULTATION: Constant tremor of the hands. HISTORY OF PRESENT ILLNESS: This is a 79-year-old right-handed male who was admitted through Emergency Room on account of altered mental status. The patient has had a history of non-Hodgkin lymphoma, required chemotherapy and radiation. He presented with new onset of visual hallucinations, and acute mental status changes. The patient received multiple medications of haloperidol, morphine, and lorazepam without significant relief. Neuro consult was requested because the patient has had longstanding history of tremor of the upper extremities. According to the patient, he has been having this tremor for several years. He denies any family history of the tremor; however, this tremor is usually aggravated by anxiety, stress, drinking coffee and by using upper extremities. He denies any resting tremor. The patient denies headaches, nausea, vomiting, chest pain, shortness of breath or palpitation, dysarthria or dysphagia. Initial head CT scan revealed no evidence of acute intracranial process, but shows chronic small vessel ischemic changes. CT of the cervical spine revealed evidence of spondylosis. The patient has been on propranolol 10 mg for tremor, but the blood pressure has been dropping, therefore the propranolol has been discontinued. PAST MEDICAL HISTORY: Significant for stage III non-Hodgkin lymphoma with failure of chemotherapy and radiation. He also has history of a postural tremor of the upper extremities and DVT, therefore he is on Eliquis. PAST SURGICAL HISTORY: Positive for carpal tunnel release, paraesophageal hernia repair, bilateral inguinal hernia repair, bilateral cataract extraction. FAMILY HISTORY: Father from squamous cell carcinoma, mother from lung cancer. SOCIAL HISTORY: The patient is . Currently, he lives with his daughter. He denies smoking, alcohol drinking or illicit drug use. CURRENT HOME MEDICATIONS: Eliquis 5 mg twice daily, propranolol 10 mg 3 times daily, lisinopril 5 mg daily, morphine sulfate 50 mg every 12 hours for pain and Lexapro 20 mg daily, Zofran 4 mg 3 times daily. ALLERGIES: No known drug allergies. REVIEW OF SYSTEMS: A 10-point review of system was performed as mentioned above in the history of present illness including ____ postural tremors of the upper extremities. PHYSICAL EXAMINATION: GENERAL: Well-developed, well-nourished male, not in acute distress. He weighs 67.2 kilos. VITAL SIGNS: Blood pressure 108/74, respiratory rate 18, pulse is 87 and regular, temperature 98.5, oxygen saturation 98% on 2 liters by nasal cannula. HEENT: Normocephalic, atraumatic, otherwise unremarkable. NECK: Supple. Negative for carotid bruit, lymphadenopathy or thyromegaly. LUNGS: Clear to A and P. CARDIOVASCULAR: Regular rate and rhythm, normal S1, S2. ABDOMEN: Soft. Bowel sounds positive. EXTREMITIES: Negative for cyanosis, clubbing or edema. NEUROLOGICAL: MENTAL STATUS: The patient is alert and oriented x 2. The speech is fluent. There is no language dysfunction. Memory, judgment and abstracting thinking are fair. The patient denies hallucination or delusion. CRANIAL NERVES: Visual tellez are full. The pupils are reactive to light and accommodation. The extraocular movements are intact. There is no nystagmus. There is no facial motor or sensory deficit. Hearing is intact bilaterally. The palate is elevated symmetrically. Sternocleidomastoid muscles are powerful bilaterally. The patient shrugs his shoulders symmetrically, protrudes his tongue in the midline without fasciculation or atrophy. MOTOR EXAMINATION: No focal muscle bulk was seen. The tone is normal. The strength is 4/5 throughout. The patient has postural and kinetic tremors of the upper extremities, but no resting tremor at this time. The tone is normal. SENSORY EXAMINATION: Revealed normal pinprick, light touch, vibratory and position senses. Deep tendon reflexes were asymmetric and hypoactive with absent Achilles responses. GAIT: Not tested. LABORATORY DATA: CBC revealed white blood cells of 4100, hemoglobin 13.4, hematocrit 40.9, platelet count 152,000. Chemistry revealed sodium of 140, potassium 3.8, chloride 105, CO2 of 27, BUN 8, creatinine 1, glucose 106, calcium 8.4. Troponin level is normal. Urinalysis is negative for urinary tract infection. PT is 11.5 and INR is 1.1. DIAGNOSTIC DATA: Chest x-ray revealed nodular opacity at the left lateral lung base. Head CT scan and CT of the cervical spine as mentioned above in history of present illness. IMPRESSION: 1. Postural and kinetic tremor of the upper extremities suggestive of essential tremor. 2. Stage III non-Hodgkin lymphoma, failed chemotherapy and radiation. 3. Acute encephalopathy, rule out central nervous system pathology. 4. History of deep venous thrombosis. RECOMMENDATIONS: 1. We will start the patient on 25 mg of primidone for tremor and increase it gradually to 50 mg at bedtime. 2. Continue with current medical care initiated by Dr. Duong. M Brian DOMÍNGUEZ MD DR: GRAZYNA/kendall JOB#: [id number] / [id number]
--- NOTE | 2020-02-20 00:46 | PN ---
DATE: SUBJECTIVE: The patient denies any new medical or neurological complaints. He stated his tremor has been improving on primidone from last night. He denies any chest pain, shortness of breath, palpitation, headaches, visual disturbances or hallucinations. OBJECTIVE: GENERAL: Well-developed, well-nourished male, not in acute distress. VITAL SIGNS: Blood pressure 125/75, respiratory rate 19, pulse is 92 regular, temperature 97.6, oxygen saturation 95% on room air. HEENT: Normocephalic, atraumatic, otherwise unremarkable. NECK: Supple. Negative for carotid bruit, lymphadenopathy or thyromegaly. LUNGS: Clear to A and P. CARDIOVASCULAR: Regular rate and rhythm, normal S1, S2. ABDOMEN: Soft. Bowel sounds positive. EXTREMITIES: Negative for cyanosis, clubbing or pitting edema. NEUROLOGICAL EXAM: Mental Status: The patient is alert and oriented x 2. Speech is fluent. There is no language dysfunction. Memory, judgment and abstract thinking are fair. The patient denies hallucination or delusion. Cranial nerves are intact. No focal motor or sensory deficit. The strength is 4/5 throughout. The patient had very mild postural tremor of the hands. Deep tendon reflexes were symmetric and hypoactive with absent Achilles responses. Gait not tested. LABORATORY DATA: CBC revealed white blood cells of 4.2 thousand, hemoglobin 12.4, hematocrit 37.3, platelet count of 139,000. IMPRESSION: 1. Long-standing history of essential tremor, was on propranolol, but because of low blood pressure, his propranolol was discontinued and started the patient on ____ mg last night. Apparently, the tremor has significantly improved with current very mild postural and kinetic tremor. 2. Multiple medical problems include stage III non-Hodgkin lymphoma. 3. Acute mental status changes. 4. Deep venous thrombosis, depression, anxiety. RECOMMENDATIONS: 1. We will increase primidone to 50 mg at bedtime. 2. Continue with current management. 3. Await spinal tap results. M Brian DOMÍNGUEZ MD DR: GRAZYNA/kendall JOB#: [id number] / [id number]
[2020-02-20] MEDS: POTASSIUM CL 20MEQ D5-0.2%NACL 1,000 ML IV SCH (03:00)
--- NOTE | 2020-02-20 05:32 | NUR ---
Shift Note: Pt is a/o x3 (slightly off on time), VSS, no c/o pain or n/v at this time, pt voiding clear yellow urine several times throughout the night (no need for straight cath), pt anticipating discharging to home in am.
--- NOTE | 2020-02-20 06:28 | PDOC ---
Exam Note: Minesh Note: This note is a late entry for 02/18/2020 covers elements not covered in my initial note. Subjective: The patient was seen face to face in the evening of 02/18/2020 with nursing staff. Discussed with nursing staff, reviewed the chart. Per nursing report, the patient has done much better, not received any p.r.n., seems much more oriented. He is having a lumbar tap to see if non-Hodgkins could have affected his TACKER OFF per Dr. Duong. He was somewhat sedated in the evening. Review of Systems: Ambulation impaired. No CV, , pulmonary, eye system symptoms on review. Mental Status Exam: Oriented to himself and situation. He is not very verbal. When awake he is coherent. Abstraction is fair. Computation is impaired. Language function is intact. Attention span is short. Mood and affect is less labile. Laboratory Data: Reviewed. Impression: Major depressive disorder with psychotic features. Psychotic disorder unspecified. Dementia with delusions. Plan: No change from initial note. Assessment: Vital Signs/I&O: Vital Signs Date Time Temp Pulse Resp B/P (MAP) Pulse Ox O2 Delivery O2 Flow Rate FiO2 02/19/20 23:00 99 18 96/52 (67) 92 Room Air 02/19/20 21:25 2.0 02/19/20 19:00 98.3 I & O 02/19/20 02/19/20 02/20/20 15:00 23:00 07:00 Intake Total 1000 ml Balance 1000 ml Labs: Laboratory Tests Test 02/19/20 08:50 CSF Tube Number 3 CSF Volume 11.0 CSF Color Colorless CSF Clarity Clear CSF WBC 0 CSF RBC 1 CSF Glucose 62 mg/dL (37-70) CSF Total Protein 51.1 mg/dL (15.0-45.0) H Current Medications: Meds: Current Medications Medications (Trade) Dose Ordered Sig/Osmar Route PRN Reason Start Time Stop Time Status Last Admin Dose Admin Primidone (Mysoline) 50 mg HS PO 02/19/20 21:00 02/19/20 20:25 Hydromorphone HCl (Dilaudid) 2 mg BID PO 02/19/20 21:00 02/19/20 20:25 I have reviewed the current psychotropics carefully including drug interactions. Risk benefit ratio favors no change other than as noted in my dictated progress note. Diagnosis: Problems: (1) Psychotic disorder (2) Mild cognitive impairment (3) Delirium due to another medical condition RUSTAM PACE MD Feb 20, 2020 06:28
[2020-02-20] MEDS: CITALOPRAM 20 MG TABLET. PO SCH (08:02)
[2020-02-20 08:06] VITALS: BP 108/73
[2020-02-20] MEDS: HYDROmorphone 2 MG TABLET PO SCH (08:06)
--- NOTE | 2020-02-20 10:18 | PN ---
DATE: SUBJECTIVE: The patient denies any new medical neurological complaints. He stated his tremor of the upper extremity is almost gone. He has been on primidone at 50 mg at bedtime. OBJECTIVE: GENERAL: Well-developed, well-nourished male, not in acute distress. VITAL SIGNS: Blood pressure 108/73, respiratory rate 14, pulse is 99 and regular, temperature 97.6, oxygen saturation 94% on room air. HEENT: Normocephalic, atraumatic, otherwise unremarkable. NECK: Supple. Negative for carotid bruit, lymphadenopathy or thyromegaly. LUNGS: Clear to A and P. CARDIOVASCULAR: Regular rate and rhythm, normal S1, S2. There is no S3, S4 or murmur. ABDOMEN: Soft. Bowel sounds positive. EXTREMITIES: Negative for cyanosis, clubbing or edema. NEUROLOGIC EXAM: The patient is alert and oriented x 3. Speech is fluent. There is no language dysfunction. Memory, judgment, and abstracting thinking are fair. The patient denies hallucination or delusion. Cranial nerves are intact. No focal motor or sensory deficit. There is no obvious postural and kinetic tremors of the upper extremities today. Deep tendon reflexes were symmetric and hypoactive with absent Achilles responses. Gait not tested. DIAGNOSTIC DATA: Spinal fluid revealed colorless fluid with 0 white blood cells and glucose 62 with slightly elevated protein at 51.1. IMPRESSION: 1. Longstanding history of tremor of the upper extremities of postural and kinetic type -- resolved on primidone. 2. Multiple medical problems include non-Hodgkin lymphoma, encephalopathy, intermittent psychosis, deep venous thrombosis and anxiety. RECOMMENDATIONS: Continue with current medical and psychiatric care. The patient does not have any evidence of central nervous system infection. M Brian DOMÍNGUEZ MD DR: GRAZYNA/kendall JOB#: [id number] / [id number]
--- NOTE | 2020-02-20 11:44 | DS ---
DATE OF DISCHARGE: 02/20/2020 ATTENDING PHYSICIAN: Dr. Duong. FINAL DISCHARGE DIAGNOSES: 1. Acute psychosis, drug related. 2. Stage 4 non-Hodgkin's lymphoma. 3. Paroxysmal atrial fibrillation. 4. Essential hypertension. 5. Status post chemotherapy and radiation therapy. 6. Partial remission of lymphoma. 7. Generalized debilitation. HISTORY AND PHYSICAL: The patient is a pleasant 79-year-old gentleman who had a diagnosis of stage 4 non-Hodgkin's lymphoma. [place] He came here to be close to the daughter. Dr. Chad Cross has been his oncologist. He was admitted with confusion and visual hallucinations. PHYSICAL EXAMINATION: Please see the dictated note. PERTINENT LABORATORY AND X-RAY STUDIES: The obligatory CT of the head on admission showed no evidence of acute intracranial mass, hemorrhage or stroke, small vessel chronic ischemic changes were noted with some mild atrophy. Cervical spine films are unremarkable for fractures. He also had a lumbar puncture during this hospitalization, which showed successfully fluoroscopic-guided lumbar puncture. The preliminary report showed no significant cells, protein and glucose were adequate and normal. Flow cytometry and cytology was sent off and were pending at the time of discharge. COURSE IN THE HOSPITAL: The patient was admitted to the hospital. We stopped his narcotics, he got better. We were able to do a spinal tap per recommendation by Dr. Cross. Preliminary report showed no significant cells. Clinically, he was better, blood pressure and vital signs were stable and he was ready for discharge. At this time, we substituted Dilaudid 2 mg p.o. every 8 hours p.r.n. pain in lieu of his morphine. In addition, his other home meds will include continuation of his Eliquis 5 mg b.i.d., Lexapro 20 mg daily, lisinopril 5 mg daily, p.r.n. Zofran and Mysoline 50 mg for tremors. For now, we held his MS Contin, Haldol and morphine sulfate. He was discharged then in stable condition with explicit instructions and followup care. They will call Dr. Cross for subsequent visit. He has a PET scan scheduled for later next month. The patient was then discharged from our hospital in stable condition with explicit instructions and followup care. CRISELDA JENSEN MD DR: LYNN/kendall JOB#: [id number] / [id number] CHAD Eid DO
--- NOTE | 2020-02-20 13:34 | NUR ---
DISCHARGE NOTE: Patient discharged from ICU, wheeled to family's vehicle by hospital staff. All belongings taken with patient including wallet with money and credit cards that were removed from the safe by nursing education supervisor. medications reviewed with patient and informed to follow up with hospice when returning home. Patient verbalized understanding and informed to call hospital with any questions. Pt is A&O at time of discharge.
== END 2020-02-20 13:34 | disposition home or self-care (01) | DRG 71 ==
LOC: ER 09:32 → ICU 12:40 → ER 13:16
PROVIDERS: ADMIT Internal Medicine; ATTEND Internal Medicine
PROC: 009U3ZX Drainage of Spinal Canal, Percutaneous Approach, Diagnostic (ICD-10-PCS; principal; 2020-02-16)
PROC: B01B1ZZ Fluoroscopy of Spinal Cord using Low Osmolar Contrast (ICD-10-PCS; 2020-02-16)
DX: G93.41 Metabolic encephalopathy (principal); F23 Brief psychotic disorder; C85.90 Non-Hodgkin lymphoma, unspecified, unspecified site; F05 Delirium due to known physiological condition; F32.3 Major depressive disorder, single episode, severe with psychotic features; D72.819 Decreased white blood cell count, unspecified; F03.90 Unspecified dementia, unspecified severity, without behavioral disturbance, psychotic disturbance, mood disturbance, and anxiety; F41.9 Anxiety disorder, unspecified; G25.0 Essential tremor; G47.00 Insomnia, unspecified; I10 Essential (primary) hypertension; I48.0 Paroxysmal atrial fibrillation; M47.9 Spondylosis, unspecified; T40.605A Adverse effect of unspecified narcotics, initial encounter; R29.6 Repeated falls; T46.4X5A Adverse effect of angiotensin-converting-enzyme inhibitors, initial encounter; Z51.5 Encounter for palliative care; Z79.01 Long term (current) use of anticoagulants; Z79.899 Other long term (current) drug therapy; Z80.0 Family history of malignant neoplasm of digestive organs; I95.2 Hypotension due to drugs; Z80.1 Family history of malignant neoplasm of trachea, bronchus and lung; Z86.711 Personal history of pulmonary embolism; Z86.718 Personal history of other venous thrombosis and embolism; Z92.21 Personal history of antineoplastic chemotherapy; Z92.3 Personal history of irradiation; Z98.41 Cataract extraction status, right eye; Z98.42 Cataract extraction status, left eye; Z20.828 Contact with and (suspected) exposure to other viral communicable diseases
CPT/HCPCS: 36415; 62270; 70450; 71045; 72125; 80053; 81001; 82945; 83615; 84157; 84484; 85025; 85027; 85610; 87070; 88112; 88184; 88185; 89051; 93005; 99285; J3490; Q0162; U0003